=== PATIENT | male | born 1940 | race Caucasian/White ===

== ENCOUNTER → 2021-03-06 00:42 | Outpatient (CLI) | payer MEDICARE, SELFPAY ==
[2021-03-06 18:08] LABS: SARS-CoV-2 RNA PCR Negative
== END ==
PROVIDERS: PCP Internal Medicine; Visit Provider Internal Medicine Gastroenterology
DX: Z20.822 Contact with and (suspected) exposure to COVID-19 (principal)
CPT/HCPCS: C9803; U0003; U0005

== ENCOUNTER 2021-03-09 00:58 | Day surgery (SDC) | payer MEDICARE, SELFPAY ==
[2021-02-25 13:39] VITALS: BMI 24.3
[2021-03-09 09:13] VITALS: BP 125/62; PULSE 61; RESP 18; TEMP 36.6; O2SAT 100; BMI 22.1
--- NOTE | 2021-03-09 09:17 | WPDANESEPPF ---
Anes - Initial Pre Proc Eval Procedure: Operation Date: 03/09/21 10:15 Proposed Procedures p Colonoscopy - Damion Linda MD Date/Time: 03/09/21 09:17 Surgeon: Damion Linda MD Pre Op Diagnosis: diarrhea Patient Data Age: 80 Gender: M Height: 1.78 m Weight: 69.8 kg Last Vital Signs Temp 98 F 03/09/21 09:13 Pulse 61 03/09/21 09:13 Resp 18 03/09/21 09:13 BP 125/62 03/09/21 09:13 Pulse Ox 100 03/09/21 09:13 Allergies Allergy/AdvReac Type Severity Reaction Status Date / Time No Known Allergies Allergy Verified 03/09/21 09:12 Home Medications Medication Instructions Recorded Confirmed Type aspirin 81 mg tablet,delayed 81 mg PO DAILY 02/18/21 02/25/21 History release glucosamine 375 [id number] 1 tablet PO DAILY 02/18/21 02/25/21 History no1 500 mg-C 15 mg-atul 0.5 mg tablet melatonin 10 mg capsule 10 mg PO QHS 02/18/21 02/25/21 History metoprolol succinate 25 mg 12.5 mg PO Q12H 02/18/21 02/25/21 History tablet,extended release 24 hr multivitamin 1 tablet PO DAILY 02/18/21 02/25/21 History simvastatin 80 mg tablet 80 mg PO DAILY 02/18/21 02/25/21 History Acidophilus 175 mg PO DAILY 02/25/21 02/25/21 History Patient hx anesthesia problems: none Family hx anesthesia problems: none [facility] Past Medical History Medical History (Updated 03/09/21 @ 09:17 by Roger Horne MD) CAD (coronary artery disease) Heart attack Hyperlipemia Hypertension Surgical History Surgical History H/O hernia repair Social History Social History Smoking status: Never smoker Second hand tobacco smoke exposure: No Alcohol intake: current Drinks per week: 0 Alcohol use details: occassional Substance use: never Living arrangements: with family Gender identity (if verbalized by the patient): Male Sexual Orientation (if Verbalized by the Patient): Straight or Heterosexual Spiritual care concerns: No Agree to blood products: Yes Anes - Eval Final PreProcedure Day of Procedure 03/09/21 09:17 Patient weight: normal Heart: regular rate and rhythm Lungs: clear to auscultation Airway: Mallampati scale class II Neurological: alert and oriented Last oral intake: >/= 8 hours ASA classification: III Emergent: no Anesthetic plan: proceed Anesthesia type and monitoring: general GIVS and standard monitoring Informed Consent: The patient's anesthetic plan and its attendant risks and benefits were discussed with the patient/family/POA. Questions were solicited and answers provided to the satisfaction of the patient/family/POA.
[2021-03-09] MEDS: LACTATED RINGERS 1,000 ML 150 ML IV CONT (09:21)
--- NOTE | 2021-03-09 09:32 | WPDHPUPDATE1 ---
History and Physical Update Update Date/Time: 03/09/21 09:32 History and Physical has been reviewed, including an updated exam of the patient. There are NO changes in the patient's condition. Risks, benefits, and alternatives have been discussed and questions answered. Patient agrees to proceed with procedure.
[2021-03-09 10:51] VITALS: BP 96/48; PULSE 63; RESP 24; O2SAT 100
[2021-03-09 11:01] VITALS: BP 119/67; PULSE 53; RESP 17; O2SAT 97
[2021-03-09 11:11] VITALS: BP 136/77; PULSE 54; RESP 14; O2SAT 100
== END 2021-03-09 11:29 | disposition home or self-care (01) ==
PROVIDERS: PCP Internal Medicine; Visit Provider Internal Medicine Gastroenterology
PROC: 0DJD8ZZ Inspection of Lower Intestinal Tract, Via Natural or Artificial Opening Endoscopic (ICD-10-PCS; CPT 45378; principal; 2021-03-09 10:15)
DX: R19.7 Diarrhea, unspecified (principal); K64.8 Other hemorrhoids; K57.30 Diverticulosis of large intestine without perforation or abscess without bleeding; I10 Essential (primary) hypertension; E78.5 Hyperlipidemia, unspecified; I25.10 Atherosclerotic heart disease of native coronary artery without angina pectoris; I25.2 Old myocardial infarction; Z79.82 Long term (current) use of aspirin
CPT/HCPCS: 45380; 88305; J2001; J2704; J7120